=== PATIENT | female | born 1990 | race Caucasian/White ===

== ENCOUNTER 2019-08-12 20:53 | Emergency (ER) | payer OTHER ==
[~2019-08-12] VITALS: Ht 165.1 cm; Wt 61.2 kg
--- NOTE | 2019-08-12 21:24 | NUR ---
EKG DONE BY EMT
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
--- NOTE | 2019-08-12 21:59 | NUR ---
Patient discharged to home in stable condition. Written and verbal after care instructions given. Patient verbalizes understanding of instruction. Pt ambulatory with a steady gait
[2019-08-12 22:05] VITALS: BP 132/78
== END 2019-08-12 22:05 | disposition home or self-care (01) ==
LOC: ER 20:59
DX: R06.02 Shortness of breath (principal); E03.9 Hypothyroidism, unspecified
CPT/HCPCS: 71045-TC

== ENCOUNTER 2020-08-28 21:54 | Emergency (ER) | payer OTHER ==
[~2020-08-28] VITALS: Ht 165.1 cm; Wt 61.2 kg
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
--- NOTE | 2020-08-28 22:59 | NUR ---
URINE COLLECTED AND SENT TO LAB.
[2020-08-28] MEDS ORDERED: KETOROLAC TROMETHAMINE INJ 60 MG/2 ML VIAL IM ONE ×2 (23:00→23:38)
--- NOTE | 2020-08-28 23:20 | NUR ---
PATIENT TO CT VIA [facility]
[2020-08-29] MEDS ORDERED: TRAM50TA2 PO ×2 (00:40→00:41)
--- NOTE | 2020-08-29 01:10 | NUR ---
PT PLACED IN ULNAR G SPLINT.
--- NOTE | 2020-08-29 01:12 | NUR ---
Patient discharged to home in stable condition. Written and verbal after care instructions given. Patient verbalizes understanding of instruction and RX. Pt denies pain, vss.
[2020-08-29 01:13] VITALS: BP 119/73
== END 2020-08-29 01:13 | disposition home or self-care (01) ==
LOC: ER 21:54
DX: S62.655A Nondisplaced fracture of middle phalanx of left ring finger, initial encounter for closed fracture (principal); R51.9 Headache, unspecified; M54.2 Cervicalgia; R07.89 Other chest pain; E03.9 Hypothyroidism, unspecified; Z79.899 Other long term (current) drug therapy; V49.49XA Driver injured in collision with other motor vehicles in traffic accident, initial encounter; Y93.89 Activity, other specified; Y92.413 State road as the place of occurrence of the external cause; Y99.8 Other external cause status
CPT/HCPCS: 29125; 70450; 71045; 72125; 73130; 84703; 96372; 99285; J1885